=== PATIENT | male | born 1980 | race Caucasian/White ===

== ENCOUNTER 2019-09-20 11:03 | Outpatient (CLI) | payer MEDICARE, SELFPAY ==
[2019-09-20 11:29] LABS: Basophils Absolute Auto 0.18 K/mm3 (0.00-0.10); Basophils Percent Auto 1.2 % (0.0-1.0); Eosinophils Absolute Auto 0.93 K/mm3 (0.02-0.50); Eosinophils Percent Auto 6.2 % (1.0-6.0); Hematocrit 41.3 % (40.0-54.0); Hemoglobin 14.7 g/dL (14.0-18.0); Immature Granulocyte Percent A 0.7 % (0.0-0.0); Lymphocytes Absolute Auto 4.53 K/mm3 (1.10-4.50); Lymphocytes Percent Auto 30.1 % (18.0-42.0); Mean Corpuscular HGB Conc 35.6 g/dL (32.0-36.0); Mean Corpuscular Volume 92.8 fL (78.0-102.0); Mean Platelet Volume 10.5 fl (8.7-11.0); Monocytes Absolute Auto 1.36 K/mm3 (0.10-0.90); Neutrophils Absolute Auto 7.9 K/mm3 (1.7-7.2); Neutrophils Percent Auto 52.8 % (50.0-70.0); Platelet Count Result 363 K/mm3 (150-420); Red Blood Count 4.45 M/mm3 (4.70-6.10); Red Cell Distribution Width 11.8 % (11.6-14.4)
[2019-09-20 13:28] LABS: Hemoglobin A1C 6.1 % (<5.7)
[2019-09-20 13:43] LABS: Alanine Aminotransferase 29 U/L (16-63); Albumin Level 3.9 g/dL (3.4-5.0); Alkaline Phosphatase 45 U/L (46-116); Anion Gap 14.8 mmol/L (7-16); Aspartate Amino Transferase 16 U/L (15-37); Bilirubin,Total 0.2 mg/dL (0.00-1.00); Blood Urea Nitrogen 10 mg/dL (7-18); Calcium 9.1 mg/dL (8.5-10.1); Carbon Dioxide 27 mmol/L (21-32); Chloride 107 mmol/L (98-108); Cholesterol 170 mg/dL (0-200); Estimated Glomerular Filt Rate > 60; Free T4 Free Thyroxine 0.84 ng/dL (0.76-1.46); Glucose 129 mg/dL (70-99); HDL Direct 29 mg/dL (40-60); LDL Cholesterol Calculated 53 mg/dL (<130); Magnesium 1.5 mg/dL (1.8-2.4); Osmolality Calculated 301 mOsm/kg (285-295); Potassium 3.8 mmol/L (3.5-5.1); Sodium 145 mmol/L (136-145); Thyroid Stimulating Hormone 2.59 uIU/mL (0.36-3.74); Total Protein 7.2 g/dL (6.4-8.2); Triglycerides 442 mg/dL (0-150)
[2019-09-20 14:12] LABS: LDL Cholesterol Direct 96 mg/dL (0-130)
[2019-09-23 09:45] LABS: Vitamin D 25 Hydroxy 10 ng/mL (30-100)
== END 2019-09-20 11:04 | disposition home or self-care (01) ==
DX: E55.9 Vitamin D deficiency, unspecified (principal); I10 Essential (primary) hypertension; K21.9 Gastro-esophageal reflux disease without esophagitis; M54.42 Lumbago with sciatica, left side; R53.83 Other fatigue; R73.9 Hyperglycemia, unspecified
CPT/HCPCS: 36415; 80053; 80061; 82306; 83036; 83721; 83735; 84439; 84443; 85025

== ENCOUNTER 2020-01-18 08:27 | Outpatient (CLI) | payer MEDICARE, MEDICAID, SELFPAY ==
--- NOTE | ~2020-01-18 | XR_ITS ---
XR lumbar spine 2-3V DATE: 01/18/2020 09:26 INDICATION: Generalized low back pain. TECHNIQUE: AP, lateral, coned lateral lumbosacral views COMPARISON: None FINDINGS: Status post posterior and interbody spinal fusion at L5-S1, with fusion across the disc spa ce. No fracture or bone destruction is evident. There is mild retrolisthesis at L4-5. There is mild degen erative spurring in the lower thoracic and upper lumbar spine. Sacroiliac joints are intact. IMPRESSION: Status post posterior and interbody spinal fusion at L5-S1 Mild degenerative changes Mild retrolisthesis at L4-5 Reviewed, dictated and finalized at location A.
--- NOTE | ~2020-01-18 | XR_ITS ---
XR knee RT 3V DATE: 01/18/2020 09:26 INDICATION: Bilateral generalized knee pain TECHNIQUE: 4 views COMPARISON: None FINDINGS: 2 screws are directed anteroposteriorly through the anterior tibial tuberosity, penetrating the posterior proximal tibial cortex. There is periarticular spurring at all 3 compartments and prominent loss of height of medial compartm ent joint space. No fracture or dislocation, periosteal reaction or bone destruction. Mild to moderate knee joint effu deanne is not excluded. No radiopaque intra-articular loose body or chondrocalcinosis. 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 IMPRESSION: Tricompartment osteoarthritis, most pronounced at the medial compar tment Possible mild to moderate knee joint effusion Screws of proximal tibia
--- NOTE | ~2020-01-18 | XR_ITS ---
XR thoracic spine 2V DATE: 01/18/2020 09:24 INDICATION: Back pain, pain between shoulder blades. TECHNIQUE: AP, lateral, swimmer views COMPARISON: None FINDINGS: No fracture or dislocation. The thoracic pedicles are intact. No paraspinal soft tissue thi ckening. There is degenerative spurring of the mid and lower thoracic spine. IMPRESSION: Degenerative spurring Reviewed, dictated and finalized at location A. IMPRESSION: Degenerative spurring
--- NOTE | ~2020-01-18 | XR_ITS ---
XR shoulder LT min 2V DATE: 01/18/2020 09:25 INDICATION: Pain between shoulder blades TECHNIQUE: 4 views COMPARISON: None FINDINGS: No fracture or dislocation, periosteal reaction or bone destruction or abnormal soft tissue calcification. There is mild osteoarthritic spurring of the left humeral head. IMPRESSION: Mild osteoarthritis at left glenohumeral joint Reviewed, dictated and finalized at location A.
--- NOTE | ~2020-01-18 | XR_ITS ---
XR shoulder RT min 2V DATE: 01/18/2020 09:25 INDICATION: Pain between shoulder blades TECHNIQUE: 4 views COMPARISON: None FINDINGS: No fracture or dislocation, periosteal reaction or bone destruction or abnormal soft tissue calcification of the right shoulder. IMPRESSION: Negative Reviewed, dictated and finalized at location A. IMPRESSION: Negative
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
--- NOTE | ~2020-01-18 | XR_ITS ---
XR knee LT 3V DATE: 01/18/2020 09:26 INDICATION: Generalized bilateral knee pain TECHNIQUE: Weightbearing AP and PA views, sunrise view, lateral view COMPARISON: None FINDINGS: There are 2 screws directed anteroposteriorly through the anterior tibial tuberosity. No ot her hardware is noted. Drill holes are noted at the patella and distal femur. No fracture or dislocation or joint effusion. There is moderate loss of height of the medial compartment joint space, with spurring at the medial c ompartment, consistent with osteoarthritis. IMPRESSION: Screw through anterior tibial tuberosity Osteoarthritis at medial compartment Reviewed, dictated and finalized at location A.
== END 2020-01-18 08:28 | disposition home or self-care (01) ==
DX: M25.511 Pain in right shoulder (principal); M25.561 Pain in right knee; M54.42 Lumbago with sciatica, left side
CPT/HCPCS: 72040; 72070; 72100; 73030; 73562

== ENCOUNTER 2020-03-01 12:48 | Outpatient (CLI) | payer MEDICARE, SELFPAY ==
[2020-03-01 13:06] LABS: Basophils Absolute Auto 0.22 K/mm3 (0.00-0.10); Basophils Percent Auto 1.3 % (0.0-1.0); Eosinophils Percent Auto 1.8 % (1.0-6.0); Hematocrit 42.4 % (40.0-54.0); Hemoglobin 14.8 g/dL (14.0-18.0); Immature Granulocyte Absolute 0.09 K/mm3 (0.00-0.00); Immature Granulocyte Percent A 0.5 % (0.0-0.0); Lymphocytes Absolute Auto 4.15 K/mm3 (1.10-4.50); Lymphocytes Percent Auto 24.9 % (18.0-42.0); Mean Corpuscular HGB Conc 34.9 g/dL (32.0-36.0); Mean Corpuscular Hemoglobin 31.7 pg (27.0-31.0); Mean Corpuscular Volume 90.8 fL (78.0-102.0); Mean Platelet Volume 9.8 fl (8.7-11.0); Monocytes Absolute Auto 1.45 K/mm3 (0.10-0.90); Monocytes Percent Auto 8.7 % (2.0-11.0); Neutrophils Absolute Auto 10.5 K/mm3 (1.7-7.2); Neutrophils Percent Auto 62.8 % (50.0-70.0); Platelet Count Result 434 K/mm3 (150-420); Red Blood Count 4.67 M/mm3 (4.70-6.10); Red Cell Distribution Width 12.2 % (11.6-14.4); White Blood Count 16.7 K/mm3 (4.8-10.8)
[2020-03-01 13:29] LABS: Hemoglobin A1C 6.6 % (<5.7)
[2020-03-01 13:43] LABS: Rheumatoid Factor Screen Negative (Negative)
[2020-03-01 14:16] LABS: Alanine Aminotransferase 25 U/L (16-63); Albumin Level 4.2 g/dL (3.4-5.0); Alkaline Phosphatase 39 U/L (46-116); Anion Gap 11.1 mmol/L (7-16); Aspartate Amino Transferase 14 U/L (15-37); Bilirubin,Total 0.3 mg/dL (0.00-1.00); Blood Urea Nitrogen 18 mg/dL (7-18); Calcium 9.9 mg/dL (8.5-10.1); Carbon Dioxide 28 mmol/L (21-32); Chloride 105 mmol/L (98-108); Cholesterol 157 mg/dL (0-200); Estimated Glomerular Filt Rate > 60; Free T4 Free Thyroxine 0.99 ng/dL (0.76-1.46); Glucose 79 mg/dL (70-99); HDL Direct 41 mg/dL (40-60); LDL Cholesterol Calculated 92 mg/dL (<130); Osmolality Calculated 290 mOsm/kg (285-295); Potassium 4.1 mmol/L (3.5-5.1); Sodium 140 mmol/L (136-145); Thyroid Stimulating Hormone 0.85 uIU/mL (0.36-3.74); Triglycerides 122 mg/dL (0-150); Uric Acid 3.7 mg/dL (3.5-7.2); Vitamin B12 434 pg/mL (193-986)
[2020-03-03 09:56] LABS: Anti Cyclic Citrullinated Pept <16 Units (<20)
[2020-03-04 11:07] LABS: Vitamin D 25 Hydroxy 23 ng/mL (30-100)
== END 2020-03-01 12:49 | disposition home or self-care (01) ==
LOC: CHSLAB 12:52
DX: M25.50 Pain in unspecified joint (principal); M25.561 Pain in right knee; M54.42 Lumbago with sciatica, left side; M79.641 Pain in right hand; E55.9 Vitamin D deficiency, unspecified; E78.5 Hyperlipidemia, unspecified; I10 Essential (primary) hypertension; K21.9 Gastro-esophageal reflux disease without esophagitis; R53.83 Other fatigue; R73.9 Hyperglycemia, unspecified
CPT/HCPCS: 36415; 80053; 80061; 82306; 82607; 83036; 83735; 84439; 84443; 84550; 85025; 86038; 86200; 86430

== ENCOUNTER 2020-04-05 15:52 | Outpatient (CLI) | payer MEDICARE, MEDICAID, SELFPAY ==
[2020-04-05 17:05] LABS: Lactate Dehydrogenase 154 U/L (85-227)
[2020-04-05 17:47] LABS: Erythrocyte Sedimentation Rate 12 mm/hr (0-15)
[2020-04-09 20:58] LABS: Immunoglobulin A 286 mg/dL (47-310); Immunoglobulin G 1231 mg/dL (600-1640); Immunoglobulin M 31 mg/dL (50-300)
[2020-04-10 15:59] LABS: BCR/abl Prior Result Not Given
[2020-04-10 16:46] LABS: BCR/abl P190 Not Detected; BCR/abl P210 Not Detected
[2020-04-10 16:47] LABS: BCR/abl P190 Chg YES; BCR/abl P210 Chg YES
== END 2020-04-05 15:53 | disposition home or self-care (01) ==
LOC: CHSLAB 15:54
PROVIDERS: Visit Provider Internal Medicine Medical Oncology
DX: D72.829 Elevated white blood cell count, unspecified (principal); R19.7 Diarrhea, unspecified
CPT/HCPCS: 36415; 81206; 81207; 82784; 83615; 85652; 88184; 88185; 88189

== ENCOUNTER 2020-04-07 02:08 | Emergency (ER) | payer MEDICARE, MEDICAID, SELFPAY ==
--- NOTE | ~2020-04-07 | XR_ITS ---
EXAMINATION: XR chest 1V portable INDICATION: Shortness of breath TECHNIQUE: Portable AP chest at 0312 hours COMPARISON: 06/29/2019 FINDINGS: There are minimal opacities of the lung bases. No pleural effusion or pneumothorax is ident ified. The cardiomediastinal silhouette is normal for technique. IMPRESSION: 1. Bibasilar airspace opacity, consistent with atelectasis versus pneumonia. Reviewed, dictated and finalized at location B.
--- NOTE | 2020-04-07 02:31 | ECG_ITS ---
Measurements Intervals [place] Rate: 71 P: 8 TX: 137 QRS: 46 QRSD: 100 T: 21 QT: 353 QTc: 385 Interpretive Statements SINUS RHYTHM BASELINE WANDER- I, III, AVL, AVF, V1, V6 NORMAL ECG Electronically Signed On 04-07-2020 7:15:41 CDT by Gavin Tesfaye D.O.
[2020-04-07 02:32] VITALS: BP 142/75; PULSE 71; RESP 20; TEMP 37.6; O2SAT 96
--- NOTE | 2020-04-07 02:51 | ED.FEVER ---
HPI - Fever General Chief Complaint: Fever Stated Complaint: shortness of breath Source: patient and EMS History of Present Illness HPI Narrative: This is a 39-year-old gentleman presents to the emergency department via EMS with some fever, temperature was taken by EMS at 99.6 with shortness of breath, has a productive cough of white sputum with some shortness of breath with no chest pain, has been having some nausea with a few episodes of vomiting with no abdominal pain no diarrhea constipation. Patient has a history of COPD is positive smoker, has a history of hypertension, hyperlipidemia and depression. MD elicited complaint: fever Measured temperature: 99.6 C Exacerbating factors: nothing Associated symptoms: cough, shortness of breath and nausea Related Data Home Medications Medication Instructions Recorded Confirmed amlodipine 10 mg PO DAILY 06/29/19 04/07/20 fenofibrate 160 mg PO DAILY 06/29/19 04/07/20 fluticasone propionate 2 spray INTRANASAL PRN PRN 06/29/19 04/07/20 gabapentin 600 mg PO TID 06/29/19 04/07/20 losartan 100 mg PO DAILY 06/29/19 04/07/20 lovastatin 40 mg PO DAILY 06/29/19 04/07/20 metoprolol succinate 100 mg PO DAILY 06/29/19 04/07/20 oxycodone 20 mg PO Q4-5H 06/29/19 04/07/20 pantoprazole 40 mg PO DAILY 06/29/19 04/07/20 sertraline 100 mg PO DAILY 06/29/19 04/07/20 tizanidine 4 mg PO BID 06/29/19 04/07/20 Allergies Allergy/AdvReac Type Severity Reaction Status Date / Time No Known Allergies Allergy Verified 06/29/19 20:24 Review of Systems Review of Systems: All systems reviewed & are unremarkable except as noted in HPI and below PMFSH Past Medical History Medical History Chronic back pain COPD (chronic obstructive pulmonary disease) Dyslipidemia GERD (gastroesophageal reflux disease) Hypertension Social History Social History Smoking status: Current every day smoker Alcohol intake: unknown Substance use: unknown Exam Const: General: no acute distress Orientation/consciousness: patient oriented x3 HENMT: Head: normal to inspection Eyes: Conjunctivae: conjunctivae normal Pupils: Equal, round and reactive pupils present EOM: EOMs intact bilaterally Neck: Neck: normal visual inspection, no lymphadenopathy and no meningeal signs Chest: Chest palpation & inspection: normal inspection of the chest Resp: Auscultation: wheezes and diminished lung sounds Cardio: Rate: regular rate Rhythm: regular rhythm GI: GI Palp: Yes Soft to palpation Percussion: Yes normal to percussion Skin: General skin exam: normal color Rashes: no rashes Extrem: General: normal to inspection and no pedal edema Psych: Mental Status: mental status grossly normal Affect: normal affect Attitude: cooperative Course [employer] HAND/PA Physician Supervision Reassessment of patient in no acute distress breathing easier has received his DuoNebs. Vital Signs Vital signs: Vital Signs Temperature 37.6 C 04/07/20 02:32 Pulse Rate 71 04/07/20 02:32 Respiratory Rate 20 04/07/20 02:32 Blood Pressure 142/75 H 04/07/20 02:32 Pulse Oximetry 96 04/07/20 02:32 Temperature 37.6 C 04/07/20 02:32 Pulse Rate 71 04/07/20 02:32 Respiratory Rate 20 04/07/20 02:32 Blood Pressure 142/75 H 04/07/20 02:32 Pulse Oximetry 96 04/07/20 02:32 MDM - Fever ECG Data EKG #1: Attestation: I personally reviewed and interpreted this ECG as follows: ECG completion date: 04/07/20 ECG completion time: 02:56 Prior ECG tracings: available for review EKG Interpretation: normal rate and sinus rhythm Critical Care Time Critical Care Time Critical Care Time: No Discharge Plan Discharge Clinical Impression: URI with cough and congestion Patient Disposition: Home, Self-Care Condition: Stable Instructions: Antibiotic Form Additional Instructions
[2020-04-07 03:05] VITALS: PULSE 82; RESP 20
[2020-04-07] MEDS: IPRATROPIUM 0.5 MG/ALBUTEROL SULFATE 2.5 MG AMPUL.NEB 3 ML INHALATION (03:05)
[2020-04-07 03:08] LABS: Base Excess ABG -2.5 mmol/L (0-2); HCO3 ABG 22.8 mmol/L (23-29); Oxygen Content ABG 17.2 %vol (16.0-22.0); Oxygen Saturation ABG 98.1 % (95-97); Oxyhemoglobin 96.3 % (94-100); PCO2 ABG 41.5 mmHg (35-45); PO2 ABG 121.7 mmHg (80-90); Total Hemoglobin 12.6 g/dL; pH ABG 7.36 (7.35-7.45)
[2020-04-07 03:12] LABS: Basophils Absolute Auto 0.09 K/mm3 (0.00-0.10); Basophils Percent Auto 0.5 % (0.0-1.0); Eosinophils Absolute Auto 0.16 K/mm3 (0.02-0.50); Eosinophils Percent Auto 0.8 % (1.0-6.0); Hematocrit 35.4 % (40.0-54.0); Hemoglobin 11.6 g/dL (14.0-18.0); Immature Granulocyte Absolute 0.09 K/mm3 (0.00-0.00); Immature Granulocyte Percent A 0.5 % (0.0-0.0); Lymphocytes Absolute Auto 1.39 K/mm3 (1.10-4.50); Lymphocytes Percent Auto 7.1 % (18.0-42.0); Mean Corpuscular HGB Conc 32.8 g/dL (32.0-36.0); Mean Corpuscular Hemoglobin 31.7 pg (27.0-31.0); Mean Corpuscular Volume 96.7 fL (78.0-102.0); Monocytes Absolute Auto 1.82 K/mm3 (0.10-0.90); Monocytes Percent Auto 9.3 % (2.0-11.0); Neutrophils Percent Auto 81.8 % (50.0-70.0); Platelet Count Result 339 K/mm3 (150-420); Red Blood Count 3.66 M/mm3 (4.70-6.10); Red Cell Distribution Width 12.6 % (11.6-14.4); White Blood Count 19.5 K/mm3 (4.8-10.8)
[2020-04-07] MEDS: ONDANSETRON INJ 4 MG/2 ML VIAL IV PUSH (03:14)
[2020-04-07] MEDS: SODIUM CHLORIDE 0.9% IV 1,000 ML 999 ML IV CONT (03:15)
[2020-04-07 03:18] LABS: Device NASAL CANNULA; Modified Allen's Test Pass; Site Drawn RIGHT BRACHIAL
[2020-04-07 03:19] VITALS: PULSE 79; RESP 20
[2020-04-07 03:30] LABS: Alanine Aminotransferase 27 U/L (16-63); Albumin Level 3.7 g/dL (3.4-5.0); Alkaline Phosphatase 36 U/L (46-116); Anion Gap 7 mmol/L (8-16); Aspartate Amino Transferase 20 U/L (15-37); Bilirubin,Total 0.2 mg/dL (0.00-1.00); Blood Urea Nitrogen 27 mg/dL (7-18); Calcium 10.4 mg/dL (8.5-10.1); Carbon Dioxide 28 mmol/L (21-32); Chloride 103 mmol/L (98-108); Estimated CRCL calculation 77 ml/min; Estimated Glomerular Filt Rate 57; Glucose 148 mg/dL (70-99); Lactic Acid Reflex 1.7 mmol/L (0.4-2.0); Osmolality Calculated 294 mOsm/kg (285-295); Potassium 4.4 mmol/L (3.5-5.1); Sodium 138 mmol/L (136-145); Total Protein 7.5 g/dL (6.4-8.2)
[2020-04-07 03:31] LABS: BNP 252 pg/mL (0-100); Influenza Control Valid (Valid); Troponin I < 0.02 ng/mL (0.00-0.056)
[2020-04-07] MEDS: cefTRIAXone 1 GM VIAL IM (03:48)
[2020-04-07] MEDS: LIDOCAINE HCL 1% LOCAL INJ 20 ML VIAL (03:49)
[2020-04-07 03:52] VITALS: BP 126/75; PULSE 80; RESP 20; TEMP 37.5; O2SAT 98
[2020-04-08 13:39] LABS: SARS-CoV-2 RNA PCR Negative
== END 2020-04-07 04:01 | disposition home or self-care (01) ==
PROVIDERS: Emergency Provider Emergency Medicine
DX: J06.9 Acute upper respiratory infection, unspecified (principal); R05 Cough; R06.02 Shortness of breath; F17.200 Nicotine dependence, unspecified, uncomplicated; Z20.828 Contact with and (suspected) exposure to other viral communicable diseases
CPT/HCPCS: 36415; 36600; 71045; 80053; 82805; 83605; 83880; 84484; 85025; 87040; 87635; 87804; 93005; 94640; 96361; 96372; 96374; 99283; 99284; C9803; J0696; J2405; J7030; U0003

== ENCOUNTER 2020-04-09 17:15 | Outpatient (CLI) | payer MEDICARE, MEDICAID, SELFPAY ==
[2020-04-21 10:43] LABS: Reference Lab Test Name PANCREATIC ELASTASE
== END 2020-04-09 17:16 | disposition home or self-care (01) ==
PROVIDERS: Visit Provider Internal Medicine Medical Oncology
DX: D72.829 Elevated white blood cell count, unspecified (principal)
CPT/HCPCS: 36415; 83520; 87177; 87209

== ENCOUNTER 2020-05-08 14:43 | Outpatient (CLI) | payer MEDICARE, MEDICAID, SELFPAY ==
--- NOTE | ~2020-05-08 | XR_ITS ---
EXAMINATION: XR chest 2V EXAM DATE: 05/08/2020 15:19 INDICATION: Generalized chest pain radiating to shoulders bilaterally. TECHNIQUE: Frontal and lateral projections of the chest obtained and reviewed. Comparison is made to prior examination from 04/07/2020. FINDINGS: The lungs are clear. There are no pleural effusions. The cardiomediastinal silhouette is within normal limits. There is no pneumothorax suspected. The bones and soft tissues are unremarkab le. IMPRESSION: Normal chest x-ray exam. Reviewed, dictated and finalized at location A. IMPRESSION: Normal chest x-ray exam.
--- NOTE | ~2020-05-08 | CT_ITS ---
EXAMINATION: CT abdomen pelvis w con EXAM DATE: 05/08/2020 15:24 INDICATION: Intermittent right lower quadrant pain. TECHNIQUE: Spiral CT of the abdomen and pelvis was performed following intravenous injection of 100 m L Omnipaque 350. Axial, coronal and sagittal images were reviewed. The dose-length product (DLP) fo r this examination was 926.86 mGy-cm. The exposure was tailored according to patient size (auto mA e xposure control), and iterative reconstruction (ASIR) was used as additional dose reduction technique . There is no prior study for comparison. FINDINGS: There is a 1.2 cm left adrenal gland nodule not meeting density criteria for adenoma on thi s postcontrast CT scan. The liver, spleen, adrenal glands and pancreas are otherwise unremarkable. Gallbladder is unremarkable. No biliary obstruction. Portal and splenic veins are patent. Kidneys enhance symmetrically. There is no hydronephrosis. Subcentimeter right renal lesions likely small cy sts. The prostate is unremarkable. The bladder is unremarkable. There is no retroperitoneal or pel gaye lymphadenopathy. The appendix is normal. The stomach and small bowel are unremarkable. There is expected amount of c olonic stool. No free intraperitoneal gas. The heart is normal in size. There are no pericardial or pleural effusions. There is a 4 mm pleural-based nodule in the right lower lobe, most likely gra nuloma. Optional twelve-month follow-up chest CT. There are no osteoblastic or osteolytic lesions id entified. Posterior and interbody fusion L5-S1. IMPRESSION: 1. No acute intra-abdominal findings. 2. Incidental Left adrenal gland statistically most likely adenoma but not meeting density requireme nts. Assuming patient has no known primary malignancy, an optional twelve-month follow-up adrenal CT could be considered. 3. Incidental 4 mm right lower lobe nodule, would likely be reimaged on the adrenal CT if obtained. Otherwise optional twelve-month follow-up chest CT. Reviewed, dictated and finalized at location A. IMPRESSION: 1. No acute intra-abdominal findings. 2. Incidental Left adrenal gland statistically most likely adenoma but not cordell ting density requirements. Assuming patient has no known primary malignancy, an optional twelve-month follow-up adrenal CT could be considered. 3. Incidental 4 mm right lower lobe nodule, would likely be reimaged on the ad renal CT if obtained. Otherwise optional twelve-month follow-up chest CT.
[2020-05-08 15:11] LABS: Estimated Glomerular Filt Rate > 60
[2020-05-08 15:31] LABS: Basophils Absolute Auto 0.15 K/mm3 (0.00-0.10); Basophils Percent Auto 1.3 % (0.0-1.0); Eosinophils Percent Auto 6.9 % (1.0-6.0); Hematocrit 42.7 % (40.0-54.0); Hemoglobin 14.7 g/dL (14.0-18.0); Immature Granulocyte Absolute 0.07 K/mm3 (0.00-0.00); Immature Granulocyte Percent A 0.6 % (0.0-0.0); Lymphocytes Absolute Auto 2.36 K/mm3 (1.10-4.50); Lymphocytes Percent Auto 20.4 % (18.0-42.0); Mean Corpuscular HGB Conc 34.4 g/dL (32.0-36.0); Mean Corpuscular Hemoglobin 31.5 pg (27.0-31.0); Mean Corpuscular Volume 91.4 fL (78.0-102.0); Mean Platelet Volume 10.3 fl (8.7-11.0); Monocytes Percent Auto 5.2 % (2.0-11.0); Neutrophils Absolute Auto 7.6 K/mm3 (1.7-7.2); Neutrophils Percent Auto 65.6 % (50.0-70.0); Platelet Count Result 415 K/mm3 (150-420); Red Blood Count 4.67 M/mm3 (4.70-6.10); Red Cell Distribution Width 12.1 % (11.6-14.4); White Blood Count 11.6 K/mm3 (4.8-10.8)
== END 2020-05-08 14:44 | disposition home or self-care (01) ==
PROVIDERS: Visit Provider Internal Medicine Medical Oncology
DX: D72.829 Elevated white blood cell count, unspecified (principal); R10.9 Unspecified abdominal pain; R19.7 Diarrhea, unspecified; R63.4 Abnormal weight loss
CPT/HCPCS: 71046; 74177; 85025; Q9965

== ENCOUNTER 2020-05-15 13:29 | Outpatient (CLI) | payer MEDICARE, SELFPAY ==
[2020-05-15 13:45] LABS: Basophils Percent Auto 1.4 % (0.0-1.0); Eosinophils Absolute Auto 0.69 K/mm3 (0.02-0.50); Hematocrit 43.2 % (40.0-54.0); Hemoglobin 14.7 g/dL (14.0-18.0); Immature Granulocyte Absolute 0.11 K/mm3 (0.00-0.00); Immature Granulocyte Percent A 0.8 % (0.0-0.0); Lymphocytes Absolute Auto 3.12 K/mm3 (1.10-4.50); Lymphocytes Percent Auto 22.4 % (18.0-42.0); Mean Corpuscular Hemoglobin 31.8 pg (27.0-31.0); Mean Corpuscular Volume 93.5 fL (78.0-102.0); Monocytes Absolute Auto 1.14 K/mm3 (0.10-0.90); Monocytes Percent Auto 8.2 % (2.0-11.0); Neutrophils Absolute Auto 8.7 K/mm3 (1.7-7.2); Neutrophils Percent Auto 62.2 % (50.0-70.0); Platelet Count Result 334 K/mm3 (150-420); Red Blood Count 4.62 M/mm3 (4.70-6.10); Red Cell Distribution Width 12.2 % (11.6-14.4); White Blood Count 13.9 K/mm3 (4.8-10.8)
== END 2020-05-15 13:30 | disposition home or self-care (01) ==
LOC: CHSLAB 13:34
PROVIDERS: Visit Provider Internal Medicine Medical Oncology
DX: D72.829 Elevated white blood cell count, unspecified (principal)
CPT/HCPCS: 36415; 85025

== ENCOUNTER 2021-06-05 15:42 | Emergency (ER) | payer MEDICARE, MEDICAID, SELFPAY ==
--- NOTE | ~2021-06-05 | XR_ITS ---
EXAMINATION: XR foot LT min 3V EXAM DATE: 06/05/2021 16:35 INDICATION: pain across top of foot x 1 wk after fall TECHNIQUE: Left foot dorsoplantar, lateral and oblique projections obtained and reviewed. There is n o prior study for comparison. FINDINGS: There is diastases of the 1st and 2nd metatarsal bases at the Lisfranc joint, distance betw een these bases measuring about 6 mm, with offset of the 2nd metatarsal base and the 2nd cuneiform julia ne, could indicate substantial ligamentous injury. There are no acute fractures identified. IMPRESSION: Suspicion of substantial left tarsometatarsal joint injury; orthopedic consult, MR left foot without contrast recommended. Reviewed, dictated and finalized at location A. ATAL SPECIALIST IMPRESSION: Suspicion of substantial left tarsometatarsal joint injury; orthop edic consult, MR left foot without contrast recommended.
[2021-06-05 16:02] VITALS: BP 151/99; PULSE 77; RESP 16; TEMP 36.6; O2SAT 98
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
[2021-06-05 17:10] VITALS: BP 111/60; PULSE 88; RESP 18; TEMP 36.6
== END 2021-06-05 17:08 | disposition home or self-care (01) ==
PROVIDERS: Emergency Provider Internal Medicine Critical Care Medicine
DX: S93.602A Unspecified sprain of left foot, initial encounter (principal); J44.9 Chronic obstructive pulmonary disease, unspecified; E78.5 Hyperlipidemia, unspecified; K21.9 Gastro-esophageal reflux disease without esophagitis; I10 Essential (primary) hypertension; F17.200 Nicotine dependence, unspecified, uncomplicated
CPT/HCPCS: 73630; 99282; 99283

== ENCOUNTER 2021-06-20 10:57 | Outpatient (CLI) | payer MEDICARE, MEDICAID, SELFPAY ==
--- NOTE | ~2021-06-20 | CT_ITS ---
EXAMINATION: CT foot LT wo con DATE: 06/20/2021 11:18 INDICATION: Lisfranc dislocation. TECHNIQUE: Computed tomography (CT) of the left foot was performed without intravenous contrast. Auto mated exposure control and iterative reconstruction technique were employed. The dose-length product was 400.39 mGy-cm. COMPARISON: Left foot radiographs 06/05/2021 FINDINGS: There is lateral subluxation of first-fifth metatarsals with respect to the tarsal bones. T here is an impaction fracture of lateral base of second metatarsal. There are chip fractures near the bases of the second, third, and fifth metatarsals. There are impaction fractures of the distal artic ular surfaces of the lateral cuneiform and cuboid. There is mild osteoarthritis of first metatarsopha langeal joint. There is heterotopic ossification distal to lateral malleolus from old injury. There a re loose bodies in the ankle joint. There is mild ankle joint osteoarthritis. There are enthesophytes at the posterior and plantar aspects of calcaneal tuberosity. There is common peroneal tenosynovitis . There is soft tissue swelling of the foot and ankle. IMPRESSION: 1. Homolateral Lisfranc fracture-dislocation. 2. Polyarticular osteoarthritis. Loose bodies in the ankle joint. 3. Common peroneal tenosynovitis. Reviewed, dictated and finalized at location B. [employer]
== END 2021-06-20 10:58 | disposition home or self-care (01) ==
LOC: CHSIMG 10:58
PROVIDERS: PCP Family Medicine; Visit Provider Podiatrist Foot & Ankle Surgery
DX: S93.325A Dislocation of tarsometatarsal joint of left foot, initial encounter (principal)
CPT/HCPCS: 73700

== ENCOUNTER 2021-10-08 15:46 | Emergency (ER) | payer MEDICARE, MEDICAID, SELFPAY ==
--- NOTE | 2021-10-08 15:53 | ED.URI ---
HPI - URI/Sore Throat General Chief Complaint: Upper Respiratory Infection Stated Complaint: congestion Time Seen by Provider: 10/08/21 15:54 Source: patient and RN notes reviewed Mode of arrival: ambulatory Limitations: no limitations History of Present Illness HPI Narrative: patient states that when he gets his sinus infection that he uses Flonase but he is out of that right now. He has also got antibiotics in the past. MD elicited complaint: cough, rhinorrhea and nasal congestion Onset (ago): day(s) (3) Consistency: constant Severity: moderate Description of mucous: yellow Able to tolerate fluids by mouth: Yes Exacerbating factors: nothing Relieving factors: nothing Associated symptoms: denies other symptoms Treatments prior to arrival: none Related Data Home Medications Medication Instructions Recorded Confirmed amlodipine 10 mg PO DAILY 06/29/19 10/08/21 fenofibrate 160 mg PO DAILY 06/29/19 10/08/21 gabapentin 600 mg PO TID 06/29/19 10/08/21 losartan 100 mg PO DAILY 06/29/19 10/08/21 lovastatin 40 mg PO DAILY 06/29/19 10/08/21 metoprolol succinate 100 mg PO DAILY 06/29/19 10/08/21 oxycodone 20 mg PO Q4-5H 06/29/19 10/08/21 pantoprazole 40 mg PO DAILY 06/29/19 10/08/21 Allergies Allergy/AdvReac Type Severity Reaction Status Date / Time No Known Allergies Allergy Verified 10/08/21 16:00 Review of Systems Review of Systems: All systems reviewed & are unremarkable except as noted in HPI and below Constitutional: Constitutional: Denies chills and Denies fever(s) Respiratory: Respiratory: Reports cough ( Smoker's cough), Denies dyspnea and Denies wheezing Gastrointestinal: Gastrointestinal: Denies diarrhea, Denies nausea and Denies vomiting PMFSH Past Medical History Medical History (Updated 10/08/21 @ 16:05 by Carlo Hammonds MD) Chronic back pain COPD (chronic obstructive pulmonary disease) Dyslipidemia GERD (gastroesophageal reflux disease) Hypertension Social History Social History Smoking status: Current every day smoker Alcohol intake: unknown Substance use: unknown Exam Const: General: healthy appearing, no acute distress and alert Nutritional Appearance: well nourished Orientation/consciousness: patient oriented x3 HENMT: Head: normal to inspection Ears: external ears normal and TM's normal bilaterally General nose exam: Abnormal mucous membranes and turbinates present boggy Face and sinus: normal facial exam Mouth: Yes Normal oral and palatal mucosa present and Yes moist mucous membranes Throat: posterior oropharynx normal and uvula midline Eyes: Conjunctivae: conjunctivae normal Pupils: Equal, round and reactive pupils present EOM: EOMs intact bilaterally Neck: Neck: normal visual inspection and no lymphadenopathy Resp: Effort & Inspection: normal respiratory effort Auscultation: clear to auscultation bilaterally Cardio: Rate: regular rate Rhythm: regular rhythm GI: GI Palp: Yes Soft to palpation and No Tenderness to palpation present (GI) Auscultation: normal bowel sounds Back/Spine/Pelvis: Cervical Spine: cervical ROM normal Thoracic/Lumbar Spine: thoraco-lumbar ROM normal Skin: General skin exam: normal color Rashes: no rashes Neuro: General: patient oriented x3, moves all extremities, no meningeal signs, no focal motor deficits and CN's II-XI intact bilaterally Speech: normal speech Extrem: General: normal to inspection Other: Left foot shows some swelling and ecchymosis secondary to his recent surgery. Psych: Appearance: grossly normal Mental Status: mental status grossly normal Affect: normal affect Thought content: Yes Normal thought content present Course Course Emergency Course: I explained the patient that antibiotics are not indicated unless he has had symptoms with fever for the last 10 days. If he wishes he could try and call his primary care physician to see if they would give him antibi
[2021-10-08 15:57] VITALS: BP 122/76; PULSE 73; RESP 16; TEMP 36.2; O2SAT 97
[2021-10-08 16:05] VITALS: BP 122/76; PULSE 73; RESP 16; TEMP 36.2; O2SAT 97
== END 2021-10-08 16:09 | disposition home or self-care (01) ==
PROVIDERS: Emergency Provider Emergency Medicine; PCP Family Medicine
DX: J00 Acute nasopharyngitis [common cold] (principal)
CPT/HCPCS: 99283

== ENCOUNTER 2021-12-15 13:21 | Emergency (ER) | payer MEDICARE, MEDICAID, SELFPAY ==
[2021-12-15 13:30] VITALS: BP 128/76; PULSE 84; RESP 20; TEMP 36.6; O2SAT 97
[2021-12-15] MEDS: LACTATED RINGERS 1,000 ML 999 ML IV CONT (13:40)
--- NOTE | 2021-12-15 13:46 | ED.NAVMDI ---
HPI - Nausea/Vomiting/Diarrhea General Chief complaint: Nausea/Vomiting/Diarrhea Stated complaint: shaky, diarrhea, abd pain, hasnt urinated in 5days Time Seen by Provider: 12/15/21 13:46 Source: patient History of Present Illness HPI Narrative: 41-year-old male, smoker with a history of hypertension, GERD, anxiety / depression, dyslipidemia, chronic low back pain on oxycodone presents to the ER with with a 10 day history of -- nausea with anorexia -- diffuse abdominal pain. no radiation. No exacerbating or relieving factors. -- Multiple episodes of diarrhea for the past 10 days. -- No urine output for the past 5 days No fever. MD elicited complaint: nausea, diarrhea and abdominal pain Pertinent past history: anorexia Onset (ago): day(s) ( started 10 days ago) Description of vomiting: watery Description of diarrhea: watery Associated nausea: Yes Associated abdominal pain: Yes Location of pain: diffuse Radiation: diffuse Pain consistency: intermittent Severity: moderate Quality: cramping Exacerbating factors: none Relieving factors: none Related Data Home Medications Medication Instructions Recorded Confirmed amlodipine 10 mg PO DAILY 06/29/19 10/08/21 fenofibrate 160 mg PO DAILY 06/29/19 10/08/21 gabapentin 600 mg PO TID 06/29/19 10/08/21 losartan 100 mg PO DAILY 06/29/19 10/08/21 lovastatin 40 mg PO DAILY 06/29/19 10/08/21 metoprolol succinate 100 mg PO DAILY 06/29/19 10/08/21 oxycodone 20 mg PO Q4-5H 06/29/19 10/08/21 pantoprazole 40 mg PO DAILY 06/29/19 10/08/21 Allergies Allergy/AdvReac Type Severity Reaction Status Date / Time No Known Allergies Allergy Verified 10/08/21 16:00 Review of Systems Review of Systems: All systems reviewed & are unremarkable except as noted in HPI and below Constitutional: Constitutional: Reports as per HPI and Reports no additional constitutional complaints Eyes: Eyes: Reports as per HPI and Reports no additional eye complaints ENT: Reports system reviewed and no additional complaints, except as documented and Reports as per HPI Cardiovascular: Cardiovascular: Reports as per HPI and Reports no additional cardiovascular complaints Respiratory: Respiratory: Reports as per HPI and Reports no additional respiratory complaints Gastrointestinal: Gastrointestinal: Reports as per HPI, Reports no additional gastrointestinal complaints, Reports abdominal pain, Reports diarrhea and Reports nausea Genitourinary: Genitourinary: Reports no additional male genitourinary complaints and Reports as per HPI Musculoskeletal: Musculoskeletal: Reports no additional musculoskeletal complaints, Reports as per HPI and Reports back pain Integumentary/Breasts: Skin/Breast: Reports system reviewed and no additional complaints, except as docu and Reports as per HPI Neurologic: Reports system reviewed and no additional complaints, except as documented and Reports as per HPI Psychiatric: Psychiatric: Reports no additional psychiatric complaints and Reports as per HPI Endocrine: Endocrine: Reports no additional endocrine complaints and Reports as per HPI Hematologic/Lymphatic: Hematologic/Lymphatic: Reports no additional hematologic/lymphatic complaints and Reports as per HPI Allergic/Immunologic: Allergic/Immunologic: Reports no additional allergic/immunologic complaints and Reports as per HPI PMFSH Past Medical History Medical History (Updated 12/15/21 @ 15:06 by Vincent Montiel MD) Chronic back pain COPD (chronic obstructive pulmonary disease) Dyslipidemia GERD (gastroesophageal reflux disease) Hypertension Social History Social History Smoking status: Current every day smoker Alcohol intake: unknown Substance use: unknown Exam Const: General: no acute distress and alert Orientation/consciousness: patient oriented x3 HENMT: Head: normal to inspection Mouth: Yes Normal oral and palatal mucosa present and Yes
[2021-12-15 14:04] LABS: Glucose Point of Care 140 mg/dl (65-105)
[2021-12-15] MEDS: PROCHLORPERAZINE EDISYLATE 10 MG/2 ML VIAL IV PUSH (14:16)
[2021-12-15 14:23] LABS: Basophils Absolute Auto 0.09 K/mm3 (0.00-0.10); Basophils Percent Auto 0.8 % (0.0-1.0); Eosinophils Absolute Auto 0.13 K/mm3 (0.02-0.50); Eosinophils Percent Auto 1.1 % (1.0-6.0); Hematocrit 39.2 % (40.0-54.0); Hemoglobin 13.4 g/dL (14.0-18.0); Immature Granulocyte Absolute 0.04 K/mm3 (0.00-0.00); Immature Granulocyte Percent A 0.3 % (0.0-0.0); Lymphocytes Absolute Auto 2.35 K/mm3 (1.10-4.50); Lymphocytes Percent Auto 19.7 % (18.0-42.0); Mean Corpuscular HGB Conc 34.2 g/dL (32.0-36.0); Mean Corpuscular Hemoglobin 31.2 pg (27.0-31.0); Mean Corpuscular Volume 91.4 fL (78.0-102.0); Monocytes Absolute Auto 0.92 K/mm3 (0.10-0.90); Monocytes Percent Auto 7.7 % (2.0-11.0); Neutrophils Absolute Auto 8.4 K/mm3 (1.7-7.2); Neutrophils Percent Auto 70.4 % (50.0-70.0); Platelet Count Result 385 K/mm3 (150-420); Red Blood Count 4.29 M/mm3 (4.70-6.10); Red Cell Distribution Width 12.9 % (11.6-14.4); White Blood Count 11.9 K/mm3 (4.8-10.8)
[2021-12-15 14:24] LABS: Add Urine Microscopic? YES; Appearance Urine Clear (Clear); Bilirubin Urine 1+ (Negative); Blood Urine Negative (Negative); Color Urine Yellow (Yellow); Glucose Urine UA Negative (Negative); Ketones Urine Trace (Negative); Leukocyte Esterase Ur Trace (Negative); Nitrate Urine Negative (Negative); Protein Urine Trace (Negative); Specific Grav Ur 1.015 (1.010-1.020); pH Urine 7.5 (5.0-8.0)
[2021-12-15 14:30] LABS: Bacteria Urine Trace /hpf; RBC Urine None seen /hpf (0-2); Squamous Epithelial Cell Urine Rare /hpf (Few); WBC Urine None seen /hpf (0-3)
[2021-12-15 14:31] LABS: Amorphous Sediment Urine Moderate
[2021-12-15 14:44] LABS: Alanine Aminotransferase 27 U/L (16-63); Albumin Level 3.7 g/dL (3.4-5.0); Alkaline Phosphatase 60 U/L (46-116); Anion Gap 10 mmol/L (8-16); Aspartate Amino Transferase 15 U/L (15-37); Bilirubin,Total 0.7 mg/dL (0.00-1.00); Blood Urea Nitrogen 17 mg/dL (7-18); Calcium 9.7 mg/dL (8.5-10.1); Carbon Dioxide 25 mmol/L (21-32); Chloride 104 mmol/L (98-108); Estimated Glomerular Filt Rate > 60; Glucose 147 mg/dL (70-99); Lipase 987 U/L (73-393); Osmolality Calculated 292 mOsm/kg (285-295); Sodium 139 mmol/L (136-145); Total Protein 7.6 g/dL (6.4-8.2)
[2021-12-15 14:44] LABS: Amphetamine Screen Urine Positive (Negative); Barbiturate Screen Urine Negative (Negative); Benzodiazepines Screen Urine Negative (Negative); Cannabinoid Screen Urine Positive (Negative); Cocaine Screen Urine Negative (Negative); Methadone Screen Urine Negative (Negative); Opiate Screen Urine Negative (Negative); Phencyclidine Screen Urine Negative (Negative)
[2021-12-15 15:29] LABS: Cholesterol 127 mg/dL (0-200); Triglycerides 93 mg/dL (0-150)
[2021-12-15 15:42] VITALS: BP 154/78; PULSE 75; RESP 20; TEMP 36.6; O2SAT 98
== END 2021-12-15 15:51 | disposition home or self-care (01) ==
PROVIDERS: Emergency Provider Internal Medicine Critical Care Medicine; PCP Family Medicine
DX: K52.9 Noninfective gastroenteritis and colitis, unspecified (principal); I10 Essential (primary) hypertension; K21.9 Gastro-esophageal reflux disease without esophagitis; E78.5 Hyperlipidemia, unspecified; J44.9 Chronic obstructive pulmonary disease, unspecified; M54.50 Low back pain, unspecified; G89.29 Other chronic pain; R63.0 Anorexia; F17.200 Nicotine dependence, unspecified, uncomplicated; F41.9 Anxiety disorder, unspecified; F32.A Depression, unspecified; F15.90 Other stimulant use, unspecified, uncomplicated
CPT/HCPCS: 36415; 80053; 80307; 81001; 82465; 82948; 83690; 84478; 85025; 96361; 96374; 99284; J0780; J7120

== ENCOUNTER 2022-10-25 23:06 | Emergency (ER) | payer MEDICARE, MEDICAID, SELFPAY ==
[2022-10-25] VITALS (7 sets, daily range): BP systolic 171–192; BP diastolic 119–124; PULSE 74–96; RESP 14–19; TEMP 37.1; O2SAT 93–96
--- NOTE | 2022-10-25 23:11 | ED.HA ---
HPI - Headache General Chief Complaint: Headache Stated Complaint: High Blood Pressure Source: patient Mode of arrival: ambulatory Limitations: no limitations History of Present Illness HPI Narrative: Patient has been having a global headache for the last several days. Knows that his blood pressure is elevated but has not been taking his prescribed medications for quite some time MD elicited complaint: headache Severity: severe Associated symptoms: nausea Related Data Home Medications Medication Instructions Recorded Confirmed fenofibrate 160 mg tablet 160 mg PO DAILY 06/29/19 12/15/21 gabapentin 600 mg tablet 600 mg PO TID 06/29/19 12/15/21 losartan 100 mg tablet 100 mg PO DAILY 06/29/19 12/15/21 lovastatin 40 mg tablet 40 mg PO DAILY 06/29/19 12/15/21 metoprolol succinate 100 mg 100 mg PO DAILY 06/29/19 12/15/21 tablet,extended release 24 hr pantoprazole 40 mg tablet,delayed 40 mg PO DAILY 06/29/19 12/15/21 release Allergies Allergy/AdvReac Type Severity Reaction Status Date / Time No Known Allergies Allergy Verified 10/25/22 23:26 Review of Systems Review of Systems: All systems reviewed & are unremarkable except as noted in HPI and below ENT: Reports system reviewed and no additional complaints, except as documented Gastrointestinal: Gastrointestinal: Denies constipation Musculoskeletal: Musculoskeletal: Reports no additional musculoskeletal complaints Integumentary/Breasts: Skin/Breast: Denies rash Neurologic: Denies dizziness Endocrine: Endocrine: Denies polydipsia [facility] Past Medical History Medical History Chronic back pain COPD (chronic obstructive pulmonary disease) Dyslipidemia GERD (gastroesophageal reflux disease) Hypertension Social History Social History Smoking status: Current every day smoker Alcohol intake: unknown Substance use: unknown Living arrangements: with family Exam Narrative: overall normal exam. Const: General: healthy appearing HENMT: Ears: external ears normal Eyes: Pupils: Equal, round and reactive pupils present Resp: Effort & Inspection: normal respiratory effort GI: Inspection: non-distended Back/Spine/Pelvis: Back: no CVA tenderness Skin: General skin exam: normal color Extrem: General: normal to inspection Course Vital Signs Vital signs: Vital Signs Temperature 37.1 C 10/25/22 23:08 Pulse Rate 96 10/25/22 23:08 Respiratory Rate 19 10/25/22 23:08 Blood Pressure 192/119 H 10/25/22 23:08 Pulse Oximetry 96 10/25/22 23:08 Oxygen Delivery Room Air 10/25/22 23:08 Temperature 37.1 C 10/25/22 23:08 Pulse Rate 68 10/26/22 00:57 Respiratory Rate 18 10/26/22 00:57 Blood Pressure 168/97 H 10/26/22 00:57 Pulse Oximetry 99 10/26/22 00:57 Oxygen Delivery Room Air 10/26/22 00:57 MDM - Headache Lab Data 10/25/22 23:32 Labs: Lab Results 10/25/22 Range/Units 23:32 Sodium 144 (136-145) mmol/L Potassium 3.0 L (3.5-5.1) mmol/L Chloride 107 (98-108) mmol/L Carbon Dioxide 27 (21-32) mmol/L Anion Gap 10 (8-16) mmol/L BUN 16 (7-18) mg/dL Creatinine 0.85 (0.70-1.30) mg/dL Estim Creat Clear Calc 120 ml/min Estimated GFR > 60 (59 - ) Glucose 117 H (70-99) mg/dL Calculated Osmolality 300 H (285-295) mOsm/kg Calcium 9.7 (8.5-10.1) mg/dL Discharge Plan Discharge Clinical Impression: Headache Qualifiers: Headache chronicity pattern: acute headache Intractability: intractable Hypertension Qualifiers: Hypertension type: primary hypertension Qualified Code(s): I10 - Essential (primary) hypertension Instructions: Acute Headache (ED) Prescriptions: New losartan-hydrochlorothiazide 100-25 mg tablet 1 tablet PO DAILY Qty: 30 0RF metoprolol succinate 100 mg tablet extended release 24 hr 100 mg PO SAFIA
[2022-10-25] MEDS: METOPROLOL TARTRATE INJ 5 MG/5 ML VIAL IV PUSH (23:40)
[2022-10-25] MEDS: SODIUM CHLORIDE 0.9% IV 1,000 ML 999 ML IV CONT (23:40)
[2022-10-25] MEDS: ONDANSETRON INJ 4 MG/2 ML VIAL IV PUSH (23:40)
[2022-10-25] MEDS: DEXAMETHASONE SOD PHOS INJ 4 MG/ML VIAL IV PUSH (23:40)
[2022-10-25 23:43] LABS: Anion Gap 10 mmol/L (8-16); Blood Urea Nitrogen 16 mg/dL (7-18); Calcium 9.7 mg/dL (8.5-10.1); Carbon Dioxide 27 mmol/L (21-32); Chloride 107 mmol/L (98-108); Estimated CRCL calculation 120 ml/min; Estimated Glomerular Filt Rate > 60; Glucose 117 mg/dL (70-99); Osmolality Calculated 300 mOsm/kg (285-295); Sodium 144 mmol/L (136-145)
[2022-10-26] VITALS: PULSE 68; RESP 18; O2SAT 96
[2022-10-26 00:03] VITALS: BP 179/123; PULSE 68; RESP 18; O2SAT 95
[2022-10-26 00:15] VITALS: PULSE 66; RESP 24; O2SAT 97
[2022-10-26 00:16] VITALS: BP 176/125; PULSE 64; RESP 25; O2SAT 97
[2022-10-26] MEDS: ENALAPRILAT 2.5 MG/2 ML VIAL IV PUSH (00:43)
[2022-10-26 00:57] VITALS: BP 168/97; PULSE 68; RESP 18; O2SAT 99
== END 2022-10-26 01:00 | disposition home or self-care (01) ==
PROVIDERS: Emergency Provider Family Medicine; PCP Family Medicine
DX: R51.9 Headache, unspecified (principal); I10 Essential (primary) hypertension; M54.9 Dorsalgia, unspecified; G89.29 Other chronic pain; E78.5 Hyperlipidemia, unspecified; K21.9 Gastro-esophageal reflux disease without esophagitis; F17.210 Nicotine dependence, cigarettes, uncomplicated
CPT/HCPCS: 36415; 80048; 96361; 96374; 96375; 99284; J1100; J2405; J7030

== ENCOUNTER 2023-01-12 15:10 | Emergency (ER) | payer MEDICARE, MEDICAID, SELFPAY ==
[2023-01-12 15:32] VITALS: BP 156/109; PULSE 96; RESP 20; TEMP 36.9; O2SAT 95
--- NOTE | 2023-01-12 15:41 | ED.GENADULT ---
HPI - General Adult General Chief complaint: Psychiatric Symptoms Stated complaint: Psychiatric; Thoughts of Self-Harm Time Seen by Provider: 01/12/23 15:19 History of Present Illness HPI narrative: Cuco is a 42M with a PMH of GERD, COPD, HLD, and HTN that presented to the ED with suicidal ideation. He has a history of an attempt in the past and follows a psychiatrist in [place]. He has chronic low back pain but does not want any meds for this. He has no other medical concerns other than his SI. Related Data Home Medications Medication Instructions Recorded Confirmed fenofibrate 160 mg tablet 160 mg PO DAILY 06/29/19 12/15/21 gabapentin 600 mg tablet 600 mg PO TID 06/29/19 12/15/21 losartan 100 mg tablet 100 mg PO DAILY 06/29/19 12/15/21 lovastatin 40 mg tablet 40 mg PO DAILY 06/29/19 12/15/21 metoprolol succinate 100 mg 100 mg PO DAILY 06/29/19 12/15/21 tablet,extended release 24 hr pantoprazole 40 mg tablet,delayed 40 mg PO DAILY 06/29/19 12/15/21 release Allergies Allergy/AdvReac Type Severity Reaction Status Date / Time No Known Allergies Allergy Verified 01/12/23 15:19 Review of Systems Review of Systems: All systems reviewed & are unremarkable except as noted in HPI and below PMFSH Past Medical History Medical History (Updated 01/12/23 @ 19:33 by Vinnie Ross DO) Chronic back pain COPD (chronic obstructive pulmonary disease) Dyslipidemia GERD (gastroesophageal reflux disease) Hypertension Social History Social History Smoking status: Current every day smoker Alcohol intake: unknown Substance use: unknown Substance use type: marijuana Living arrangements: with family Exam Const: General: healthy appearing and no acute distress Nutritional Appearance: well nourished Orientation/consciousness: patient oriented x3 Limitations: no limitations HENMT: Head: normal to inspection Ears: external ears normal Face/Nose/Sinus: Normal external nose present Eyes: Conjunctivae: conjunctivae normal Pupils: Equal, round and reactive pupils present Neck: Neck: normal visual inspection Chest: Chest palpation & inspection: normal inspection of the chest Resp: Effort & Inspection: normal respiratory effort Auscultation: clear to auscultation bilaterally Cardio: Rate: regular rate Rhythm: regular rhythm Skin: General skin exam: normal color Rashes: no rashes Neuro: General: patient oriented x3 and moves all extremities Cranial nerves: Yes Nystagmus not present Speech: normal speech Extrem: Other: no deformity Psych: Mental Status: mental status grossly normal Course Course Emergency Course: Ordered labs as below and nicotine. Labs were largely unremarkable. Aria Dickens was called for a mental health professional and he was evaluated by Angelita who evaluated Cuco and determined he was safe to discharge home to / with [facility]. Vital Signs Vital signs: Vital Signs Temperature 98.4 F 01/12/23 15:32 Pulse Rate 96 01/12/23 15:32 Respiratory Rate 20 01/12/23 15:32 Blood Pressure 156/109 H 01/12/23 15:32 Pulse Oximetry 95 01/12/23 15:32 Oxygen Delivery Room Air 01/12/23 15:32 Temperature 98.4 F 01/12/23 15:32 Pulse Rate 96 01/12/23 15:32 Respiratory Rate 20 01/12/23 15:32 Blood Pressure 156/109 H 01/12/23 15:32 Pulse Oximetry 95 01/12/23 15:32 Oxygen Delivery Room Air 01/12/23 15:32 Medical Decision Making Vital Signs Vital Signs: Vital Signs Temperature 98.4 F 01/12/23 15:32 Pulse Rate 96 01/12/23 15:32 Respiratory Rate 20 01/12/23 15:32 Blood Pressure 156/109 H 01/12/23 15:32 Pulse Oximetry 95 01/12/23 15:32 Oxygen Delivery Room Air 01/12/23 15:32 Temperature 98.4 F 01/12/23 15:32 Pulse Rate 96 01/12/23 15:32 Respiratory Rate 20 01/12/23 15:32 Blood Pressure 156/109 H 01/12/23 15:32 Pulse Oxime
[2023-01-12] MEDS: NICOTINE (*PBKC) 21 MG PATCH 1 PATCH TRANSDERM (15:44)
[2023-01-12 15:57] VITALS: BP 140/86; PULSE 90; RESP 20; O2SAT 96
[2023-01-12 16:06] LABS: Basophils Absolute Auto 0.16 K/mm3 (0.00-0.10); Basophils Percent Auto 1.3 % (0.0-1.0); Eosinophils Absolute Auto 0.48 K/mm3 (0.02-0.50); Eosinophils Percent Auto 3.8 % (1.0-6.0); Hematocrit 46.1 % (40.0-54.0); Hemoglobin 15.9 g/dL (14.0-18.0); Immature Granulocyte Absolute 0.04 K/mm3 (0.00-0.00); Immature Granulocyte Percent A 0.3 % (0.0-0.0); Lymphocytes Percent Auto 23.5 % (18.0-42.0); Mean Corpuscular HGB Conc 34.5 g/dL (32.0-36.0); Mean Corpuscular Volume 92.8 fL (78.0-102.0); Mean Platelet Volume 10.2 fl (8.7-11.0); Monocytes Absolute Auto 0.93 K/mm3 (0.10-0.90); Monocytes Percent Auto 7.3 % (2.0-11.0); Neutrophils Absolute Auto 8.1 K/mm3 (1.7-7.2); Neutrophils Percent Auto 63.8 % (50.0-70.0); Platelet Count Result 329 K/mm3 (150-420); Red Blood Count 4.97 M/mm3 (4.70-6.10); White Blood Count 12.8 K/mm3 (4.8-10.8)
[2023-01-12 16:20] LABS: Bilirubin Urine Negative (Negative); Blood Urine Negative (Negative); Color Urine Light Yellow (Yellow); Glucose Urine UA Negative (Negative); Ketones Urine Negative (Negative); Leukocyte Esterase Ur Trace LEU/UL (Negative); Nitrate Urine Negative (Negative); Protein Urine 1+ (Negative); Urobilinogen Urine 0.2 mg/dL (0.2-1.0)
[2023-01-12 16:24] LABS: Alanine Aminotransferase 32 U/L (16-63); Albumin Level 3.8 g/dL (3.4-5.0); Alkaline Phosphatase 39 U/L (46-116); Anion Gap 7 mmol/L (8-16); Aspartate Amino Transferase 20 U/L (15-37); Bilirubin,Total 0.3 mg/dL (0.00-1.00); Blood Urea Nitrogen 13 mg/dL (7-18); Calcium 9.7 mg/dL (8.5-10.1); Carbon Dioxide 30 mmol/L (21-32); Chloride 106 mmol/L (98-108); Estimated CRCL calculation 108 ml/min; Estimated Glomerular Filt Rate > 60; Glucose 99 mg/dL (70-99); Osmolality Calculated 296 mOsm/kg (285-295); Potassium 3.4 mmol/L (3.5-5.1); Salicylate 4.7 mg/dL (2.8-20.0); Sodium 143 mmol/L (136-145); Thyroid Stimulating Hormone 0.47 uIU/mL (0.36-3.74); Total Protein 7.3 g/dL (6.4-8.2)
[2023-01-12 16:26] LABS: Add Urine Microscopic? YES; Amorphous Sediment Urine Few; Amphetamine Screen Urine Negative (Negative); Appearance Urine Slightly Cloudy (Clear); Barbiturate Screen Urine Negative (Negative); Benzodiazepines Screen Urine Negative (Negative); Cannabinoid Screen Urine Negative (Negative); Cocaine Screen Urine Negative (Negative); Methadone Screen Urine Negative (Negative); Opiate Screen Urine Negative (Negative); Phencyclidine Screen Urine Negative (Negative); Squamous Epithelial Cell Urine Few /hpf (Few); WBC Urine None seen /hpf (0-3)
[2023-01-12 16:28] LABS: Acetaminophen < 2 ug/mL (10-30); Ethanol < 3 mg/dL (0-6)
[2023-01-12] MEDS: NICOTINE (*PBKC) 7 MG PATCH 1 PATCH TRANSDERM (16:58)
[2023-01-12 17:55] VITALS: BP 143/92; PULSE 85; RESP 16; TEMP 36.3; O2SAT 96
--- NOTE | 2023-01-12 18:15 | PC.NURSE ---
Pt discussed wanting to leave immediately bc he lied about feeling suicidal. Stated his mom told him to say that, otherwise he would not be seen by md for depression
[2023-01-12 19:37] VITALS: BP 138/90; PULSE 72; RESP 16; TEMP 37; O2SAT 96
--- NOTE | 2023-01-12 19:39 | PC.NURSE ---
belongings released to patient
== END 2023-01-12 19:38 | disposition home or self-care (01) ==
PROVIDERS: Emergency Provider Family Medicine; PCP Family Medicine
DX: R45.851 Suicidal ideations (principal); E78.5 Hyperlipidemia, unspecified; I10 Essential (primary) hypertension; F17.200 Nicotine dependence, unspecified, uncomplicated; Z79.899 Other long term (current) drug therapy
CPT/HCPCS: 36415; 80053; 80307; 81001; 84443; 85025; 99284; A9270

== ENCOUNTER 2023-02-04 13:01 | Emergency (ER) | payer MEDICARE, MEDICAID, SELFPAY ==
[2023-02-04 13:05] VITALS: BP 132/102; PULSE 83; RESP 20; TEMP 37.3; O2SAT 98
[2023-02-04 13:08] VITALS: BP 132/102; PULSE 83; RESP 20; TEMP 37.3; O2SAT 98
--- NOTE | 2023-02-04 13:11 | ED.GENADULT ---
HPI - General Adult General Chief complaint: Dental/Oral Stated complaint: abcess tooth Time Seen by Provider: 02/04/23 13:06 History of Present Illness HPI narrative: the patient is a 42-year-old male with history of hypertension and hyperlipidemia. He did not take his blood pressure lower medications today. He has had an broken tooth in the right upper area for the last 3 months, causing intermittent pain for the last 3 months, managed by ibuprofen. It is bothering him more at this point. He went to the [facility] previously and has called them but is unable to make an appointment at this time. No fevers or chills. No drainage from the tooth site with purulent material. No facial swelling. No other complaints. Related Data Home Medications Medication Instructions Recorded Confirmed fenofibrate 160 mg tablet 160 mg PO DAILY 06/29/19 02/04/23 losartan 100 mg tablet 100 mg PO DAILY 06/29/19 02/04/23 lovastatin 40 mg tablet 40 mg PO DAILY 06/29/19 02/04/23 pantoprazole 40 mg tablet,delayed 40 mg PO DAILY 06/29/19 02/04/23 release amlodipine 10 mg tablet 10 mg PO DAILY 02/04/23 02/04/23 Allergies Allergy/AdvReac Type Severity Reaction Status Date / Time No Known Allergies Allergy Verified 02/04/23 13:06 Review of Systems Review of Systems: All systems reviewed & are unremarkable except as noted in HPI and below Constitutional: Constitutional: Denies chills, Denies excessive sweating, Denies fatigue, Denies fever(s), Denies headache(s) and Denies weakness Eyes: Eyes: Denies change in vision and Denies photophobia ENT: Denies dysphagia, Denies dizziness, Denies headache(s), Denies lip swelling, Denies nasal congestion, Denies sore throat and Denies tongue swelling Cardiovascular: Cardiovascular: Denies chest pain, Denies syncope, Denies rapid heart rate and Denies dyspnea Respiratory: Respiratory: Denies cough, Denies dyspnea and Denies wheezing Gastrointestinal: Gastrointestinal: Denies abdominal pain, Denies constipation, Denies dysphagia, Denies diarrhea, Denies nausea and Denies vomiting Genitourinary: Genitourinary: Denies hematuria, Denies dysuria, Denies urinary frequency and Denies urinary urgency Musculoskeletal: Musculoskeletal: Denies back pain, Denies myalgias, Denies arthralgias, Denies joint swelling and Denies numbness Integumentary/Breasts: Skin/Breast: Denies pruritus, Denies erythema and Denies rash Neurologic: Denies confusion, Denies dizziness, Denies syncope, Denies headache(s), Denies focal weakness, Denies numbness and Denies weakness Psychiatric: Psychiatric: Denies anxiety and Denies confusion Endocrine: Endocrine: Denies excessive sweating and Denies fatigue Hematologic/Lymphatic: Hematologic/Lymphatic: Denies easy bleeding and Denies easy bruising Allergic/Immunologic: Allergic/Immunologic: Denies lip swelling, Denies tongue swelling and Denies wheezing PMFSH Past Medical History Medical History (Updated 02/04/23 @ 13:16 by Calixto Dutta MD) Chronic back pain COPD (chronic obstructive pulmonary disease) Dyslipidemia GERD (gastroesophageal reflux disease) Hypertension Social History Social History Smoking status: Current every day smoker Alcohol intake: unknown Substance use: unknown Substance use type: marijuana Living arrangements: with family Exam Const: General: healthy appearing, no acute distress, alert and well nourished Nutritional Appearance: well nourished Orientation/consciousness: patient oriented x3 Limitations: no limitations HENMT: Head: normal to inspection Ears: external ears normal Face/Nose/Sinus: normal facial exam Face and sinus: normal facial exam Mouth: Yes moist mucous membranes Teeth and gingiva: abnormal tooth and associated gingiva Throat: posterior oropharynx normal Other: Multiple pulled teeth. There are several teeth with cavities. Does have so
[2023-02-04] MEDS: traMADol HCL (*CRX) 50 MG TABLET PO (13:19)
[2023-02-04] MEDS: AMOXICILLIN 500 MG CAPSULE PO (13:19)
[2023-02-04] MEDS: ACETAMINOPHEN 500 MG TABLET 1000 MG PO (13:19)
[2023-02-04 13:45] VITALS: BP 138/95; PULSE 80; RESP 18; O2SAT 99
== END 2023-02-04 13:45 | disposition home or self-care (01) ==
LOC: CHSED 13:39
PROVIDERS: Emergency Provider Emergency Medicine; PCP Family Medicine
DX: K04.7 Periapical abscess without sinus (principal); K02.9 Dental caries, unspecified; S02.5XXA Fracture of tooth (traumatic), initial encounter for closed fracture; I10 Essential (primary) hypertension; E78.5 Hyperlipidemia, unspecified; J44.9 Chronic obstructive pulmonary disease, unspecified; Z79.899 Other long term (current) drug therapy; X58.XXXA Exposure to other specified factors, initial encounter
CPT/HCPCS: 99283; A9270